=== PATIENT | female | born 1950 | race Hispanic/Latino ===

== ENCOUNTER 2018-05-09 09:51 | Day surgery (SDC) | payer MEDICARE, OTHER ==
[2018-05-04 10:51] VITALS: BMI 38.4
[2018-05-09 10:27] LABS: BASO # 0.08 K/mm3 (0.0-2.0); BASO % 0.9 % (0.0-3.0); EOS # 0.5 (0.0-0.7); EOS % 5.5 % (1.5-5.0); GRAN # 5.67 (1.4-6.5); GRAN % 66.1 % (50.0-68.0); HEMOGLOBIN 13.4 g/dL (12.0-16.0); LYMPH # 1.7 (1.2-3.4); MEAN CELL VOLUME 92.5 fl (80.0-105.0); MEAN CORPUSCULAR HEMOGLOBIN 30.5 pg (25.0-35.0); MEAN PLATELET VOLUME 8.7 fl (7.0-11.0); MONO # 0.6 (0.1-0.6); MONO % 7.5 % (1.0-6.0); RBC 4.39 10^6/uL (3.5-6.1); RED CELL DISTRIBUTION WIDTH 13.5 % (11.5-14.5); WHITE BLOOD COUNT 8.6 10^3/uL (4.5-11.0)
[2018-05-09 10:37] LABS: INR 1.06; PARTIAL THROMBOPLASTIN TIME 27.9 Seconds (25.1-36.5); PROTHROMBIN TIME 12.2 SECONDS (9.4-12.5)
[2018-05-09 10:38] LABS: CALCIUM 9.4 mg/dL (8.4-10.5)
[2018-05-09] MEDS ORDERED: Lidocaine 1% Inj (20ml) ONE (10:47)
[2018-05-09] MEDS ORDERED: Midazolam 2 MG/2 ML VIAL ONE (12:00)
[2018-05-09] MEDS ORDERED: Oxycodone/Acetaminophen 5/325 mg Tab PO PRN (12:35)
[2018-05-09] MEDS ORDERED: Sodium Chloride 0.45% 1,000 ML IV SCH (12:45)
[2018-05-09] MEDS ORDERED: Midazolam 2 MG/2 ML VIAL IVP ONE (12:55)
[2018-05-09 13:02] VITALS: RESP 20
[2018-05-09 13:36] VITALS: TEMP 97.6
--- NOTE | 2018-05-09 15:25 | RAD ---
Date of service: 05/09/2018 HISTORY: RLL lung bx COMPARISON: No prior. FINDINGS: LUNGS: Right lower lobe and right upper lobe lung mass. No pneumothorax PLEURA: No significant pleural effusion identified, no pneumothorax apparent. CARDIOVASCULAR: No aortic atherosclerotic calcification present. Normal cardiac size. No pulmonary vascular congestion. OSSEOUS STRUCTURES: No significant abnormalities. VISUALIZED UPPER ABDOMEN: Normal. OTHER FINDINGS: None. IMPRESSION: No evidence of post biopsy pneumothorax
--- NOTE | 2018-05-09 15:29 | CT ---
PROCEDURE: CT guided right lower lobe lung biopsy. HISTORY: Large 7.5 cm right lower lobe lung mass. Evaluate for malignancy PHYSICIAN(S): Jose Villegas MD. TECHNIQUE: The relative risks and indications of the procedure were explained to the patient and consent obtained. The patient was placed prone on the CT scanner and preliminary images through the lung bases obtained. Conscious sedation and monitoring were provided throughout the procedure by a nurse. There is a 7.5 cm oval mass in the right lower lobe posteriorly. A right posterior approach was selected and the area prepped and draped in the usual sterile fashion. 1% Xylocaine was used to anesthetize the skin and soft tissues. A 19 gauge guiding needle was advanced into the 0.5 cm right lower lobe lung mass. Its position was confirmed with CT. Using coaxial technique, multiple core biopsies were obtained. The postprocedure images show no evidence of large pneumothorax or hemorrhage. IMPRESSION: 1. CT-guided right lower lobe lung biopsy as described above.
[2018-05-09 15:41] VITALS: BP 123/87; PULSE 77; O2SAT 99
== END 2018-05-09 15:50 | disposition home or self-care (01) ==
LOC: SDS 09:51
PROVIDERS: ATTEND Radiology Vascular & Interventional Radiology
DX: C78.01 Secondary malignant neoplasm of right lung (principal); Z85.51 Personal history of malignant neoplasm of bladder; I10 Essential (primary) hypertension
CPT/HCPCS: 32405; 36415; 71045; 77012; 80048; 85025; 85610; 85730; 88305; J2250; J2405; J3010; J7030